=== PATIENT | female | born 2000 | race Two or more races ===

== ENCOUNTER 2022-01-19 12:27 | Emergency (ER) | payer MEDICAID, OTHER ==
[~2022-01-19] VITALS: Ht 154.9 cm; Wt 54.4 kg
[2022-01-19 13:28] LABS: Urine Bacteria NONE SEEN /hpf (None Seen); Urine Blood Negative /uL (Negative); Urine Mucus FEW (None Seen); Urine Specific Gravity 1.026 (1.001-1.035); Urine WBC 54 /hpf (0 - 5)
[2022-01-19 14:23] LABS: Basophils # (auto) 0.1 10 ^3/uL (0-0.2); Basophils % (auto) 0.5 % (0.0-2.0); Eosinophils # (auto) 0 10 ^3/uL (0-0.8); Eosinophils % (auto) 0.3 % (0.0-7.0); Hematocrit 33.6 % (36.0-46.0); Hemoglobin 11.5 g/dL (12.2-16.2); Lymphocytes # (auto) 1.5 10 ^3/uL (0.4-5.4); Mean Corpuscular Hemoglobin 29.5 pg (28.0-32.0); Mean Corpuscular Hgb Conc. 34.1 g/dL (32.0-36.0); Mean Corpuscular Volume 86.4 fL (80.0-100.0); Monocytes # (auto) 1.1 10 ^3/uL (0-1.3); Monocytes % (auto) 9.7 % (0.0-12.0); Neutrophils # (auto) 8.3 10 ^3/uL (1.6-8.6); Neutrophils % (auto) 75.5 % (37.0-80.0); Red Blood Cells 3.89 10^6/uL (4.0-5.20); Red Cell Distribution Width 13.9 % (11.8-14.3)
[2022-01-19 14:42] LABS: Albumin 2.8 g/dL (3.4-5.0); Calcium 8.8 mg/dL (8.5-10.1); Potassium 3.9 mmol/L (3.5-5.1)
[2022-01-19 14:47] LABS: Bilirubin, Total 0.9 mg/dL (0.2-1.0); Total Protein 7.2 g/dL (6.4-8.2)
[2022-01-19] MEDS ORDERED: ACETAMINOPHEN 325 MG TAB PO ONE ×2 (16:15→20:30)
[2022-01-19] MEDS ORDERED: SODIUM CHLORIDE 0.9% 1,000 ML IV ONE ×2 (16:45→21:00)
[2022-01-19] MEDS ORDERED: ceFAZolin 1GM/50ML 100 ML IV ONE (17:15)
[2022-01-19 21:14] VITALS: BP 84/41
== END 2022-01-19 22:13 | disposition short-term general hospital (02) ==
LOC: ER 12:27
DX: O20.8 Other hemorrhage in early pregnancy (principal); O42.90 Premature rupture of membranes, unspecified as to length of time between rupture and onset of labor, unspecified weeks of gestation; Z3A.17 17 weeks gestation of pregnancy; Z20.822 Contact with and (suspected) exposure to COVID-19
CPT/HCPCS: 36415; 76805; 80053; 81001; 84702; 85025; 86850; 86900; 86901; 87426; 96361; 96365; 96366; 99285; J0690; J7030

== ENCOUNTER → 2022-12-05 | Day surgery (SDC) | payer MEDICAID ==
[~2022-12-05] VITALS: Ht 154.9 cm; Wt 52.3 kg
[~2022-12-05] MED LIST: CEPH500C PO; DexAMETHasone SOD PHOS 10MG/1ML VIAL INJ ONE; FER325T PO; GLYCOPYRROLATE 0.2 MG/ML 1ML VIAL ONE; HYDROmorphone HCL 2 MG/ML VL/or syr IV ONE; HYDROmorphone HCL 2 MG/ML VL/or syr IV PRN; HYDROmorphone HCL 2 MG/ML VL/or syr ONE; IBUP800T27 PO; KETOROLAC TROMETH 30 MG/ML 1ML VIAL ONE; LACT. RINGERS/OXYTOCIN 20UNITS 1,000 ML IV ONE; LACT. RINGERS/OXYTOCIN 20UNITS 1,000 ML IV SCH; LIDOCAINE 2% (LOCAL ANESTH.) PF 5ml SDV ONE; MIDAZOLAM HCL 2MG/2ML 2ml VIAL (1mg/ml) ONE; ONDA-144 PO; ONDANSETRON HCL 4 MG/2 ML VIAL IV ONE; ONDANSETRON HCL 4 MG/2 ML VIAL IV PRN; ONDANSETRON HCL 4 MG/2 ML VIAL ONE; PROPOFOL 10 MG/ML 20 ML IV ONE; RHO (D) IMMUNE GLOBULIN 300 MCG INJ IM PRN; TRANEXAMIC ACID 1,000 MG in SODIUM CHL 0.9% 100 ML IV ONE; ceFAZolin 2 GM/D5W100ml 100 ML IV ONE; fentaNYL CITRATE 100 MCG/2 ML VL ONE
[2022-12-05 09:32] LABS: Red Cell Distribution Width 15.4 % (11.8-14.3)
[2022-12-05 09:33] LABS: Hemoglobin 9.4 g/dL (12.2-16.2); Mean Corpuscular Hgb Conc. 33.4 g/dL (32.0-36.0); Mean Corpuscular Volume 77.9 fL (80.0-100.0); White Blood Cell 13.1 10^3/uL (4.4-10.8)
[2022-12-05 09:38] LABS: Basophils % (manual) 0 (0.0-2.0); Blast Cells 0; Eosinophils % (manual) 0 (0-7); Metamyelocytes % 0; Monocytes % (manual) 0 (0-12); Myelocytes % 0; Promyelocytes % 0; Reactive Lymphocytes 0
[2022-12-05 09:44] LABS: Albumin 2.5 g/dL (3.4-5.0); Calcium 7.7 mg/dL (8.5-10.1); Potassium 3.7 mmol/L (3.5-5.1)
[2022-12-05 09:48] LABS: INR 0.95 (0.9-1.15); Partial Thromboplastin Time 26.4 sec (24.6-33.4); Total Protein 5.7 g/dL (6.4-8.2)
[2022-12-05 09:54] LABS: Band Neutrophils % (manual) 61; Lymphocytes % (manual) 7 (10.0-50.0)
[2022-12-05 13:25] VITALS: BP 113/65
== END | disposition home or self-care (01) ==
LOC: EDBD 09:10 → EDUNIT# 09:10 → ER 09:10 → SUR 09:11
PROVIDERS: ATTEND Obstetrics & Gynecology
DX: N93.9 Abnormal uterine and vaginal bleeding, unspecified (principal); O03.4 Incomplete spontaneous abortion without complication; R93.89 Abnormal findings on diagnostic imaging of other specified body structures; Z79.1 Long term (current) use of non-steroidal anti-inflammatories (NSAID)
CPT/HCPCS: 36415; 36430; 59820; 76856; 80053; 84702; 85007; 85027; 85610; 85730; 86850; 86900; 86901; 86920; 87426; 88300; 88305; 88307; 96365; 96375; 99285; J1100; J1170; J1885; J2001; J2250; J2405; J2590; J2704; J3010; P9016